=== PATIENT | female | born 1955 | race Caucasian/White ===

== ENCOUNTER 2016-07-30 11:33 | Emergency (ER) | payer OTHER ==
[~2016-07-30] VITALS: Ht 162.6 cm; Wt 90.8 kg
[2016-07-30 14:47] LABS: HEMOGLOBIN 14.3 g/dL (11.7-16.4)
[2016-07-30] MEDS ORDERED: ALBUTEROL SULFATE 2.5MG/0.5ML ONE (14:54)
[2016-07-30] MEDS ORDERED: ALBUTEROL/IPRATROPIUM 2.5MG/0.5MG, 3 ML ONE (14:54)
[2016-07-30 14:59] LABS: ASPARTATE AMINO TRANSFERASE 12 U/L (15-37); BLOOD UREA NITROGEN 13 mg/dL (7-18)
[2016-07-30] MEDS ORDERED: ALBUTEROL/IPRATROPIUM 2.5MG/0.5MG, 3 ML NPPB ONE (15:00)
[2016-07-30 15:11] VITALS: BP 145/78
[2016-07-30 15:11] LABS: IS PT STATUS REG ER OR PRE ER? YES
[2016-07-30] MEDS ORDERED: ALBUTEROL SULFATE 2.5MG/0.5ML NPPB ONE (15:30)
== END 2016-07-30 15:47 | disposition home or self-care (01) ==
LOC: ED 15:20
DX: J45.41 Moderate persistent asthma with (acute) exacerbation (principal); I10 Essential (primary) hypertension; R06.00 Dyspnea, unspecified
CPT/HCPCS: 36415; 71010; 80053; 84484; 85025; 93005; 94640; 99285; J7611; J7620